=== PATIENT | female | born 1990 | race Caucasian/White ===

== ENCOUNTER 2016-08-20 13:41 | Emergency (ER) | payer OTHER ==
[~2016-08-20] VITALS: Ht 160 cm; Wt 107.0 kg
[2016-08-20 13:44] VITALS: Ht 160 cm; Wt 107.0 kg
[2016-08-20] MEDS ORDERED: IBUPROFEN 600 MG TAB PO ONE (14:30)
--- NOTE | 2016-08-20 15:13 | ERA ---
ER Documentation Chief Complaint Date/Time DATE: 08/20/16 TIME: 15:11 Chief Complaint lower back pain getting worse, seen by pcp no plan of care HPI This is a 25-year-old female presenting with a chief complaint of chronic back pain for the past 2 months. Patient has had similar symptoms a few years ago that was worsened after prolonged bed rest secondary to . Patient has not been taking any medications to relieve the symptoms. Patient has seen PCP who is supposed to prescribe medication for the pain but has not this point. Denies any medical conditions. Patient denies mechanism of injury, history of cancer, recent illness, unexplained weight loss, saddle anesthesia, generalized neurological deficit, incontinence, urinary retention, thoracic pain, or pain at rest. ROS All systems reviewed and are negative except as per history of present illness. Medications Home Meds Active Scripts Ibuprofen* (Motrin*) 600 Mg Tab, 600 MG PO Q8, #30 TAB Prov:KALI DIAZ PA-C 08/20/16 Allergies Allergies: Coded Allergies: No Known Allergy (Unverified , 02/26/16) PMhx/Soc History of Surgery: Yes (kidney stones) Anesthesia Reaction: No Hx Neurological Disorder: No Hx Respiratory Disorders: No Hx Cardiac Disorders: No Hx Psychiatric Problems: No Hx Miscellaneous Medical Probl: No Hx Alcohol Use: No Hx Substance Use: No Hx Tobacco Use: No Physical Exam Vitals Vital Signs Date Time Temp Pulse Resp B/P Pulse Ox O2 Delivery O2 Flow Rate FiO2 08/20/16 13:44 97.9 83 18 135/95 98 Physical Exam Const: [] Head: Atraumatic Eyes: Normal Conjunctiva ENT: Normal External Ears, Nose and Mouth. Neck: Full range of motion..~ No meningismus. Resp: Clear to auscultation bilaterally Cardio: Regular rate and rhythm, no murmurs Abd: Soft, non tender, non distended. Normal bowel sounds Skin: No petechiae or rashes Back: No midline or flank tenderness Ext: No cyanosis, or edema Neur: Awake and alert Psych: Normal Mood and Affect Results 24 hrs Current Medications Medications (Trade) Dose Ordered Sig/Nahum Route PRN Reason Start Time Stop Time Status Last Admin Dose Admin Ibuprofen (Motrin) 600 mg ONCE ONCE PO 08/20/16 14:30 08/20/16 14:31 DC 08/20/16 14:47 Procedures/MDM Patient was evaluated and worked up for acute lower back pain. Patient was given 650 mg of Tylenol in the ED with relief of symptoms. X-ray was taken due to the chronicity. X-ray was read by the radiologist and revealed the following: Unremarkable three view series of the lumbar spine. Current most likely diagnosis is back pain due to musculoskeletal pathology. Thus, the treatment plan will include an NSAID for discomfort as well as conservative therapy which has been discussed with the patient. At this time I do not suspect cauda equina syndrome, spinal cord compression, aortic aneurysm, aortic dissection, epidural abscess, spinal hematoma, malignancy, kidney stones or pyelonephritis. I have spoke with the patient regarding their condition and future management. They have verbally responded that they understand their status and treatment plan. The patients vitals are stable, and their current condition is appropriate for discharge. The patient will be given discharge instructions with return precautions. Departure Diagnosis: Primary Impression: Back pain Qualified Code: M54.5 - Chronic low back pain without sciatica, unspecified back pain laterality Additional Instructions: Follow up with your PCP within the next 1-3 days for a more thorough evaluation and a possible referral to a specialist. Return the the emergency department immediately if symptoms worsen or change. If you have any questions regarding medications, ask your pharmacist or us before you leave. If any adverse reactions occur while taking your medications, discontinue the treatment and return to the emergency department immediately. Take your medications as directed, and complete the entire course of treatment. KALI DIAZ PA-C Aug 20, 2016 15:13
--- NOTE | 2016-08-20 16:40 | RADRPT ---
PROCEDURE: XR Lumbar Spine. CLINICAL INDICATION: Low back pain. TECHNIQUE: AP, cone-down lateral, and lateral views of the lumbar spine were obtained. COMPARISON: None. FINDINGS: Mineralization is within normal limits. Vertebral bodies are normal in height. No fracture is iden tified. Lumbar lordosis is preserved. No vertebral subluxation is seen. The intervertebral discs are normal in height. Paraspinal contours are unremarkable. RPTAT:HJJR IMPRESSION: Unremarkable three view series of the lumbar spine. Physician Terra Date Time Electronically viewed and signed by Physician Terra on 08/20/2016 16:40 /
[2016-08-20] MEDS ORDERED: IBUP-1542 PO (16:43)
== END 2016-08-20 17:04 | disposition home or self-care (01) ==
LOC: FTE 13:41
DX: M54.5 Low back pain (principal)
CPT/HCPCS: 72100; Z7502; Z7610

== ENCOUNTER 2017-03-20 17:07 | Emergency (ER) | END 2017-03-20 20:24 | disposition home or self-care (01) ==

== ENCOUNTER 2017-09-06 09:50 | Emergency (ER) | END 2017-09-06 13:13 | disposition home or self-care (01) ==

== ENCOUNTER 2018-04-14 17:30 | Emergency (ER) | payer OTHER ==
[~2018-04-14] VITALS: Ht 160 cm; Wt 64.6 kg
[~2018-04-14 17:30] MED LIST: CEPH-443 PO; HYDR50TA15 PO; IBUP-1542 PO; NITR-58 PO; PHEN-538 PO
[2018-04-14 17:37] VITALS: Ht 160 cm; Wt 64.6 kg
[2018-04-14] MEDS ORDERED: SOD CHLORIDE 0.9% 500 ML IV STA (21:44)
[2018-04-14] MEDS ORDERED: POTASSIUM CHLORIDE (SR) 20 MEQ TAB PO STA (22:50)
--- NOTE | 2018-04-14 23:03 | ERD ---
ER Documentation Chief Complaint Chief Complaint Substernal CP that is sharp like and associated with SOB; EGA 14wks. HPI This is a 27-year-old female who presents at roughly 14 weeks with complaints of chest pain that is been off and on randomly since August 2017. Patient states that the chest pain occurred today and was sharp substernal and radiated to the back and lasted roughly 1 hour. Patient states that she often g ets this pain every couple weeks. Patient states that the chest pain has subsided. Patient states that she was seen in the emergency department in August for the same pain and states that this episode was unchanged from every other episode she has had. Patient states that she was told she had low potassium when she was in the emergency department in August 2017. Patient has a appointment scheduled with county manager in 2 weeks. Denies shortness of breath, trouble breathing, cough, congestion, runny nose, wheezing, nausea, vomiting, diarrhea, constipation, heartburn, abdominal pain, pelvic pain, vaginal pain, vaginal bleeding and all other symptoms. Patient denies PE risk factors including recent surgery/immobilization, smoking, prior hx of DVT, coagulopathy, hx of cancer, exogenous estrogen use, one sided lower extremity swelling, and lower extremity pain. Patient denies cardiac risk factors including: hypertension, diabetes mellitus, hypercholesterolemia, physical inactivity, smoking, hx of CAD, and prior stress/cath. ROS All systems reviewed and are negative except as per history of present illness. Medications Home Meds Active Scripts Hydroxyzine Hcl* (Hydroxyzine Hcl*) 50 Mg Tablet, 50 MG PO Q6H PRN for ANXIETY, #30 TAB Prov:PASILABAN,KERONAR F 09/06/17 Nitrofurantoin Monohyd Macrocr* (Macrobid*) 100 Mg Capsr, 100 MG PO BID for 7 Days, CAP Prov:PASILABAN,KLAR F 09/06/17 Phenazopyridine Hcl* (Pyridium*) 200 Mg Tab, 200 MG PO TID for 2 Days, TAB Prov:CHARY AKHTAR PA-C 03/20/17 Cephalexin* (Keflex*) 500 Mg Capsule, 500 MG PO BID for 5 Days, CAP Prov:CHARY AKHTAR PA-C 03/20/17 Ibuprofen* (Motrin*) 600 Mg Tab, 600 MG PO Q8, #30 TAB Prov:KALI DIAZ PA-C 08/20/16 Allergies Allergies: Coded Allergies: No Known Allergy (Unverified , 02/26/16) PMhx/Soc Medical and Surgical Hx: pt denies Surgical Hx History of Surgery: Yes (kidney stones) Anesthesia Reaction: No Hx Neurological Disorder: No Hx Respiratory Disorders: No Hx Cardiac Disorders: No Hx Psychiatric Problems: No Hx Miscellaneous Medical Probl: No Hx Alcohol Use: No Hx Substance Use: No Hx Tobacco Use: No Smoking Status: Never smoker FmHx Family History: No diabetes Physical Exam Vitals Vital Signs Date Temp Pulse Resp B/P (MAP) Pulse Ox O2 O2 Flow FiO2 Time Delivery Rate 04/14/18 Nasal 2 22:19 Cannula 04/14/18 99.5 100 19 132/76 96 17:37 (94) Physical Exam Physical Exam Vitals signs: Reviewed by me. General: Well developed, well nourished, in no acute distress. Patient is awake and alert. Head: Normocephalic, atraumatic. Eyes: Normal conjunctiva, Pupils PERRLA, EOM intact grossly ENT: Pharynx is clear, Moist mucous membranes, external ears, nose and mouth normal Neck: Supple, no masses, lymphadenopathy or JVD Respiratory: Clear to auscultation bilaterally with no wheezing, rhonchi, rales, no distress Cardiovascular: RRR, no murmurs, rubs, or gallops Abdominal: Soft, , no peritoneal signs, no rigidity, no surgical abdomen, bowel sounds present all 4 quadrants, nontender light deep palpation : Deferred MSK: No edema, no unilateral swelling, 5/5 strength, no calf swelling, no calf tenderness, Homans sign negative Back: No midline tenderness. No flank tenderness Neurologic: Alert and oriented, moving all extremities, normal speech, no focal weakness, no cerebellar signs. Normal mentation Skin: warm and dry, No rash Psych: Normal mood Result Diagram: 04/14/18219904/14/182199 Results 24 hrs Laboratory Tests Test 04/14/18 22:00 White Blood Count 10.4 10^3/ul Red Blood Count 4.22 10^6/ul Hemoglobin 11.5 g/dl Hematocrit 35.1 % Mean Corpuscular Volume 83.2 fl Mean Corpuscular Hemoglobin 27.3 pg Mean Corpuscular Hemoglobin Concent 32.8 g/dl Red Cell Distribution Width 14.0 % Platelet Count 232 10^3/UL Mean Platelet Volume 11.7 fl Immature Granulocytes % 0.300 % Neutrophils % 62.0 % Lymphocytes % 26.5 % Monocytes % 7.2 % Eosinophils % 3.6 % Basophils % 0.4 % Nucleated Red Blood Cells % 0.0 /100WBC Immature Granulocytes # 0.030 10^3/ul Neutrophils # 6.5 10^3/ul Lymphocytes # 2.8 10^3/ul Monocytes # 0.8 10^3/ul Eosinophils # 0.4 10^3/ul Basophils # 0.0 10^3/ul Nucleated Red Blood Cells # 0.0 10^3/ul Prothrombin Time 11.7 Sec Prothrombin Time Ratio 0.9 INR International Normalized Ratio 0.85 Activated Partial Thromboplast Time 28.6 Sec D-Dimer 699.71 ng/ml D-Dimer Comment Urine Color YELLOW Urine Clarity CLOUDY Urine pH 6.0 Urine Specific [place] 1.025 Urine Ketones 1+ mg/dL Urine Nitrite NEGATIVE mg/dL Urine Bilirubin NEGATIVE mg/dL Urine Urobilinogen 1+ mg/dL Urine Leukocyte Esterase NEGATIVE Rhianna/ul Urine Microscopic RBC 3 /HPF Urine Microscopic WBC 2 /HPF Urine Squamous Epithelial Cells FEW /HPF Urine Amorphous Crystals MODERATE /HPF Urine Bacteria FEW /HPF Urine Mucus MANY /HPF Urine Hemoglobin NEGATIVE mg/dL Urine Glucose 3+ mg/dL Urine Total Protein NEGATIVE mg/dl Sodium Level 139 mmol/L Potassium Level 3.0 mmol/L Chloride Level 104 mmol/L Carbon Dioxide Level 22 mmol/L Anion Gap 13 Blood Urea Nitrogen 10 mg/dl Creatinine 0.38 mg/dl Est Glomerular Filtrat Rate mL/min > 60 mL/min Glucose Level 96 mg/dl Calcium Level 9.2 mg/dl Troponin I < 0.012 ng/ml Current Medications Medications Dose Sig/Nahum Start Time Status Last (Trade) Ordered Route PRN Stop Time Admin Dose Reason Admin Sodium 500 ml @ Q1H STAT 04/14/18 DC 04/14/18 Chloride 500 mls/hr IV 21:44 22:06 04/14/18 22:43 Procedures/MDM EKG, MONITORS, & DIAGNOSTIC IMAGING: EKG read by kareyn: Rate/Rhythm: Regular rate and rhythm at a rate of 81 Intervals: Normal Impression: No evidence of ischemia or arrhythmia no ST elevation, no peak T waves, no widened QRS, no LA interval prolongation, no QT interval prolongation LAB INTERPRETATION: CBC a couple for a mild anemia with a hemoglobin of 11.5 and hematocrit of 35.1, no evidence of hemorrhage or infection Chemistry remarkable for a decreased potassium 3.0. Shows no evidence of significant electrolyte abnormalities or renal insufficiency Coagulation shows a mildly elevated d-dimer of 699.71, Lipase shows no evidence of acute pancreatitis Cardiac biomarkers show no evidence of acute myocardial injury or coronary ischemia ER COURSE: The patient was given potassium The patient was stable throughout ED course. I kept the patient and/or family informed of laboratory and diagnostic imaging results throughout the emergency room course. The patient was promptly evaluated and a treatment plan was devised based on H&P and other data. This plan was discussed with the patient who agreed and had no further questions or concerns prior to discharge. MEDICAL DECISION MAKING: The patient presents with chest pain that has been on and off since august 2017, had one episode earlier today, and I considered pulmonary embolism, acute coronary syndrome, STEMI, and STEMI, pericarditis, aortic dissection, pneumothorax, tension pneumothorax, pneumonia, pleural effusion, among other diagnoses. Per the perc criteria pulmonary embolism can be ruled out. Patient is low risk for PE by well's criteria with the score of 0.patient has no cough, sputum production so therefore did not order chest x-ray because I do not think it is necessary. EKG is also unremarkable. Evaluation for acute coronary syndrome was performed. The HEART score (www.mdcalc.com <http://www.mdcalc.com>) was utilized for risk stratification and found to be 0. Based on this evaluation the patients risk of major adverse cardiac events is <1%. Shared decision making occurred with patient and the decision has been made to discharge the patient for outpatient evaluation and functional study within 72 hours. Patient is and blood work is remarkable for a mild anemia, and also hypokalemia. Patient was given potassium in the emergency department today. patient does have a slightly elevated d dimer but this is likely due to . Discussed laboratory findings and case with overseeing physician dr. tate and she advises that the d dimer is likely elevated due to , and ct imaging for PE is unnecessary. History and physical examination other data not consistent with emergent processes including lung not limited to acute coronary syndrome, pulmonary embolism, pneumonia, pleural effusion, pneumothorax, tension pneumothorax, aortic dissection, esophageal rupture, among others. Patient vitals are stable and patient can be managed with close outpatient follow. patient advised to follow up with primary care in the next 48 hours. return to ed with any worsening symptoms DISPOSITION PLAN: We discussed follow up with the patient's primary care doctor within 24 to 48 hours. Patient counseled regarding my diagnostic impression and care plan. Prior to discharge all questions answered. Pt agrees with treatment plan and understands strict return precautions. Precautionary instructions provided including instructions to return to the ER if not improving or for any worsening or changing symptoms or concerns. SPECIALIST FOLLOW UP RECOMMENDED: county manager Patient has been advised to follow up with primary care in 1-2 days. Disclaimer: Inadvertent spelling and grammatical errors are likely due to EHR/dictation software use and do not reflect on the overall quality of patient care. Also, please note that the electronic time recorded on this note does not necessarily reflect the actual time of the patient encounter. Departure Diagnosis: Primary Impression: Chest pain Chest pain type: unspecified Qualified Codes: R07.9 - Chest pain, unspe cified Additional Impressions: Hypokalemia Anemia Anemia type: unspecified type Qualified Codes: D64.9 - Anemia, unspecified Weeks of gestation: unspecified Qualified Codes: Z34.90 - Encounter for supervision of normal , unspecified, unspecified trimester Condition: Stable Patient Instructions: Anemia During , Chest Pain, Uncertain Cause (Toddler), Hypokalemia Referrals: BRITNI AREVALO RAMESH K MD CHANG,ALFREDO HIDALGO MD Additional Instructions: Patient advised to return to the ED immediately for new or worsening symptoms. Patient advised to follow up with primary care provider in the next 24-48 hours. Patient verbalized understanding and agrees with treatment plan and course of action. If patient has no primary care they may follow up with one of the community clinics listed on the following page or one of the options listed below [facility] + [facility] [address] [place] [id number] or [facility] [address] [place] [address] or [facility] [address] [place] [address] DEBBY HOOKER PA-C Apr 14, 2018 23:03
[2018-04-15 00:04] VITALS: BP 96/55; PULSE 69; RESP 16
== END 2018-04-15 00:05 | disposition home or self-care (01) ==
LOC: FTE 17:30
DX: O99.89 Other specified diseases and conditions complicating pregnancy, childbirth and the puerperium (principal); R07.9 Chest pain, unspecified; E87.6 Hypokalemia; O99.281 Endocrine, nutritional and metabolic diseases complicating pregnancy, first trimester; O99.011 Anemia complicating pregnancy, first trimester; D64.9 Anemia, unspecified; Z3A.14 14 weeks gestation of pregnancy
CPT/HCPCS: 36415; 80048; 81001; 84484; 85025; 85378; 85610; 85730; 93005; 96360; J7040; Z7502; Z7610

== ENCOUNTER 2018-08-30 12:19 | Inpatient (IN) | payer OTHER ==
[~2018-08-30] VITALS: Ht 162.6 cm; Wt 70.3 kg
[2018-08-30 12:44] VITALS: Ht 162.6 cm; Wt 70.3 kg
[2018-08-30 12:45] VITALS: BP 101/58; PULSE 88; RESP 18
[2018-08-30] MEDS ORDERED: PNV11TAB PO (12:54)
[2018-08-30] MEDS ORDERED: CEFTRIAXONE 1 GM/50 ML (PMX) 50 ML IVPB SCH (17:00)
--- NOTE | 2018-08-30 17:07 | HP ---
Date/Time of Note Date/Time of Note DATE: 08/30/18 TIME: 17:05 OB - History Hx of Present Free Text/Dictation 33+wks with Pyelonephritis : 5 Para: 4 Care: Good Care Ultrasounds: Normal mid trimester US Obstetrical Complications: None Medical Complications: None Past Family/Social History * Past Medical, Surgical, Family and Obstetric Histories reviewed from chart. OB Admission Exam Vital Signs Vital Signs Vital Signs Date Temp Pulse Resp B/P (MAP) Pulse Ox O2 O2 Flow FiO2 Time Delivery Rate 08/30/18 97.8 88 18 101/58 12:45 (72) Physical Exam Abdomen: WNL (+Right CVA tenderness) Cervical Dilatation: None Effacement: 0% Station: Ballotable Membranes: Intact Heart Rate: 140's Accelerations: Accelerations Present Decelerations: No Decelerations Varibility: Moderate Contractions on Admission: None Last 72 hours Lab Results CBC & BMP 08/30/18 12:57 Liver Function Test 08/30/18 12:57 Alanine Aminotransferase (ALT/SGPT) 9 L Albumin 3.3 Alkaline Phosphatase 83 Aspartate Amino Transf (AST/SGOT) 13 L Direct Bilirubin 0.00 Total Protein 6.5 OB Assessment/Plan Reason for admission: observation Other Assessment: PMH Gallbladder stones PSH denies Plan: Expectant Management Other plan: IV Antibiotics IV hydration Urine culture Continuous monitoring The Private physician will follow up on her LUH LOPEZ M.D. Aug 30, 2018 17:07
[2018-08-30] MEDS: SOD CHLORIDE 0.9% 1,000 ML IV SCH (17:45)
[2018-08-30] MEDS: ACETAMINOPHEN 325 MG TAB PO PRN ×2 (17:52→20:25)
[2018-08-30] MEDS ORDERED: HYDROCODONE/APAP (5/325) TAB PO ONE (22:00)
[2018-08-31] MEDS: SOD CHLORIDE 0.9% 1,000 ML IV SCH (01:11)
[2018-08-31] MEDS ORDERED: FERROUS SULFATE (EC) 325 MG TAB PO SCH (09:00)
[2018-08-31] MEDS ORDERED: FERROUS FUMARATE (SR) TAB PO SCH (09:00)
[2018-08-31] MEDS ORDERED: PRENATAL VITAMIN PO SCH (09:00)
--- NOTE | 2018-08-31 12:00 | DS ---
Date/Time of Note Date/Time of Note DATE: 08/31/18 TIME: 11:59 Obstetrical Discharge Record Final Diagnosis Final Diagnosis: not delivered Other Final Diagnosis 27-year-old 5 para 4 at 33 weeks and 5 days of gestation with estimated date of delivery October 14, 2018 Patient with known history of gallstones She was admitted with suspected diagnosis of pyelonephritis Patient received IV antibiotics She remained stable and afebrile She has no complaints today Microbiology URINE CULTURE Preliminary Organism 1 MIXED GRAM POSITIVE ORGANISMS COLONY COUNT <10,000 CFU/ml Laboratory Tests Test 08/30/18 12:40 08/30/18 12:57 Urine Color YELLOW Urine Clarity SLIGHTLY CLOUDY Urine pH 8.0 Urine Specific [place] 1.016 Urine Ketones NEGATIVE mg/dL Urine Nitrite NEGATIVE mg/dL Urine Bilirubin NEGATIVE mg/dL Urine Urobilinogen NEGATIVE mg/dL Urine Leukocyte Esterase TRACE Rhianna/ul Urine Microscopic RBC 0 /HPF Urine Microscopic WBC 4 /HPF Urine Squamous Epithelial Cells FEW /HPF Urine Bacteria FEW /HPF Urine Mucus FEW /HPF Urine Hemoglobin NEGATIVE mg/dL Urine Glucose NEGATIVE mg/dL Urine Total Protein NEGATIVE mg/dl White Blood Count 8.1 10^3/ul Red Blood Count 3.35 10^6/ul Hemoglobin 7.2 g/dl Hematocrit 24.3 % Mean Corpuscular Volume 72.5 fl Mean Corpuscular Hemoglobin 21.5 pg Mean Corpuscular Hemoglobin Concent 29.6 g/dl Red Cell Distribution Width 17.0 % Platelet Count 167 10^3/UL Mean Platelet Volume 11.7 fl Immature Granulocytes % 0.600 % Neutrophils % 70.8 % Lymphocytes % 21.7 % Monocytes % 4.3 % Eosinophils % 2.1 % Basophils % 0.5 % Nucleated Red Blood Cells % 0.0 /100WBC Immature Granulocytes # 0.050 10^3/ul Neutrophils # 5.8 10^3/ul Lymphocytes # 1.8 10^3/ul Monocytes # 0.4 10^3/ul Eosinophils # 0.2 10^3/ul Basophils # 0.0 10^3/ul Nucleated Red Blood Cells # 0.0 10^3/ul Sodium Level 135 mmol/L Potassium Level 3.7 mmol/L Chloride Level 107 mmol/L Carbon Dioxide Level 22 mmol/L Anion Gap 6 Blood Urea Nitrogen 8 mg/dl Creatinine 0.48 mg/dl Est Glomerular Filtrat Rate mL/min > 60 mL/min Glucose Level 127 mg/dl Calcium Level 8.5 mg/dl Total Bilirubin 0.6 mg/dl Direct Bilirubin 0.00 mg/dl Indirect Bilirubin 0.6 mg/dl Aspartate Amino Transf (AST/SGOT) 13 IU/L Alanine Aminotransferase (ALT/SGPT) 9 IU/L Alkaline Phosphatase 83 IU/L Total Protein 6.5 g/dl Albumin 3.3 g/dl Globulin 3.20 g/dl Albumin/Globulin Ratio 1.03 Amylase Level 116 U/L Lipase 122 U/L Current Medications Medications Dose Sig/Nahum Start Time Status Last (Trade) Ordered Route PRN Stop Time Admin Dose Reason Admin Sodium 1,000 ml @ Q8H IV 08/30/18 08/31/18 Chloride 125 mls/hr 17:00 01:11 650 mg Q4H PRN 08/30/18 08/30/18 Acetaminophen PO .PAIN OR 17:00 20:25 (Tylenol TEMP Tab) Ceftriaxone 50 ml @ Q24H IVPB 08/30/18 08/30/18 Sodium 100 mls/hr 17:00 17:45 Prenat 1 tab DAILY PO 08/31/18 08/31/18 Multivit/ 09:00 11:56 [place]/Iron/Fo lic Ac () Docusate 1 tab DAILY PO 08/31/18 DC Sodium/ 09:00 Ferrous 08/31/18 09:00 Fumarate (Robert-Sequel s) Ferrous 325 mg DAILY PO 08/31/18 08/31/18 Sulfate 09:00 11:56 (Ferrous Sulfate (Ec)) 2 tab ONCE ONCE 08/30/18 DC 08/30/18 Acetaminophen PO 22:00 22:03 / 08/30/18 22:01 Hydrocodone Bitart ([place] (5/325)) Prescription for Macrobid was given Patient instructed to follow-up with [facility] in 1 to 2 days Condition on Discharge Physical Assessment Last Vitals: VS - Last 72 Hours, by Label Date Temp Pulse Resp B/P (MAP) Pulse Ox O2 O2 Flow FiO2 Time Delivery Rate 08/30/18 97.8 88 18 101/58 12:45 (72) Voiding: Yes Bowel Movement: Yes Breast: Soft, non-tender Fundus: Other (Gravid) Calf Tenderness: No Patient Condition: Good Copies To: CC: YVETTE ESPITIA MD ; LAINA MENDEZ MD Aug 31, 2018 12:00
== END 2018-08-31 12:47 | disposition home or self-care (01) | DRG 833 ==
LOC: OBT 12:19 → L-D 12:19 → OBT 17:00 → L-D 17:00
PROVIDERS: ADMIT Specialist; ATTEND Specialist
DX: O23.03 Infections of kidney in pregnancy, third trimester (principal); Z3A.33 33 weeks gestation of pregnancy
CPT/HCPCS: 76705; 76817; 76818; 80053; 81001; 82150; 83690; 85025; 87086; G0463; J0696; J7030